=== PATIENT | male | born 1955 | race Caucasian/White ===

== ENCOUNTER → 2020-03-12 11:47 | Outpatient (CLI) | payer OTHER, SELFPAY ==
--- NOTE | 2020-03-12 11:53 | RAD_ITS ---
STUDY: X-RAY - LUMBOSACRAL SPINE REASON FOR EXAM: Male, 64 years old. Chronic low back pain TECHNIQUE: 7 view(s) of the lumbosacral spine were obtained. COMPARISON: None FINDINGS: Normal lumbar lordosis. There is no substantial scoliosis. There is normal alignment of the vertebrae in the lateral view from L1 to L5. There is a bilateral pars defect and grade 2-3 spondylolisthesis at L5/S1. No instability noted on the flexion or extension views.. Normal vertebral bodies and endplates. Normal disc space heights except for significant narrowing at L5/S1. Normal bilateral sacral ala, sacroiliac joints, and visualized sacrum. Normal visualized soft tissue structures. RAD/L/S Spine Comp/w Bending Views IMPRESSION: No demonstrated fracture or suspicious osseous lesion Bilateral pars defect and grade 2-3 spondylolisthesis at L5/S1 without instability Significant disc space narrowing L5/S1 Electronically Signed: Garrick Tanner MD at 13:25 EDT , Service support ,
== END ==
PROVIDERS: PCP Family Medicine; Referring Provider Family Medicine; Visit Provider Family Medicine
DX: M54.5 Low back pain (principal); G89.29 Other chronic pain
CPT/HCPCS: 72114

== ENCOUNTER 2021-07-09 23:17 | Emergency (ER) | payer OTHER, SELFPAY ==
[2021-07-09 23:17] VITALS: PULSE 80; RESP 16; TEMP 36.4; O2SAT 96; BMI 26.4
[2021-07-09 23:22] VITALS: BP 166/78
--- NOTE | 2021-07-09 23:36 | RAD_ITS ---
HISTORY: Laceration between first and second digit on palm from an ice skate. EXAMINATION/TECHNIQUE: XR Hand Min 3 Views: Left COMPARISON: None FINDINGS: SOFT TISSUES: Punctate radiopaque foreign body located between proximal first and second metacarpal bones, visualized on frontal and oblique views but not lateral view. BONES/JOINTS: No acute fracture or subluxation. Normal alignment. Mild first carpometacarpal degenerative joint space narrowing. RAD/Hand Min 3 Views IMPRESSION: Punctate radiopaque foreign body within soft tissues between first and second metacarpal bones, possibly superficial. Correlate clinically. at 0031 Reported and signed by: Kwadwo Boone MD Electronically Signed: Kwadwo Boone MD at 0:30 EDT Tel , Service support ,
[2021-07-10] MEDS: Diphth,Pertuss(Acell),Tet Vac 0.5 ML Vial IM
[2021-07-10] MEDS: Lidocaine 1% /Epi 1:100 (20ml) 20 ML Vial INFILT (00:01)
--- NOTE | 2021-07-10 00:31 | EX.ED.UPPERE ---
HPI History of Present Illness Chief Complaint: Laceration Narrative Narrative: Patient presenting for evaluation secondary to a laceration to the left hand. Patient was playing hockey and a skate went across his palm of his left hand suffering laceration. There is mild to moderate pain worse with palpation and movement. Patient reports that he has numbness over the radial portion of his index finger. Is not up-to-date on his tetanus he is right-hand dominant. He denies any other injuries. PFSH PFSH Medical History Hernia Allergy/AdvReac Type Severity Reaction Status Date / Time cabbage AdvReac Upset Verified 07/09/21 23:20 Stomach Social History Smoking Status: Never smoker ROS ROS ED Constitutional Constitutional ED: Denies fever(s) Respiratory/Chest Respiratory/Chest: Denies cough or dyspnea Integumentary Reports other Details: Left hand laceration Neurologic Neurologic: Reports paresthesias Psychiatric Psychiatric: Denies depression Hematologic/Lymphatic Hematologic/Lymphatic: Denies easy bleeding or easy bruising EXAM Physical Exam Const Vital Signs: 07/09/21 23:17 07/09/21 23:22 Temperature 97.5 F L Temperature Source Oral Pulse Rate 80 Respiratory Rate 16 Blood Pressure 166/78 H Blood Pressure Mean 107 Pulse Ox 96 Oxygen Delivery Method Room Air Positive well nourished and well developed General Appearance ED: well developed HEENT normocephalic and atraumatic Eyes EOMs intact bilaterally Resp normal respiratory effort Cardio regular rate and regular rhythm Extremity Extremity Narrative: Examination of patient's left hand shows a laceration over the palmar surface of the hand. There is a linear laceration measuring about 2 cm over the index and long digit metacarpal area. Patient complains of numbness going from the proximal interphalangeal joint to the tip of the finger over the radial portion of the index finger with normal flexion and extension. Normal capillary refill. Neuro oriented x3 Sensorium / Orientation: alert Psych mental status grossly normal Skin Rashes: no rashes MDM MDM MDM Narrative Medical decision making narrative: Patient presented secondary to a hand laceration. X-ray was obtained by my personal interpretation as well as radiology shows no bony insults, there was a possible metallic foreign body noted on the skin which I was able to remove. It was addressed as noted in the procedure note. Patient be discharged with outpatient follow-up with Dr. Voss as he does have a slight neurologic deficit of the finger. Tetanus was updated Procedures Lacerations Hand: Length: 24 in Depth: Skin Shape: Linear Prep: Shure-Clens Laceration repair: Irrigated and Lidocaine with epi Irrigated (ml): 500 Number of Sutures/Joslyn: 4 Suture Information: Ethilon and 4-0 Comment: Wound was anesthetized using 5 cc of lidocaine with epinephrine. It was explored through full active range of motion there is no evidence of violation of the patient's flexor tendon. Patient was complaining of some numbness over the radial portion of his index finger. It was approximated using simple interrupted 4-0 nylon sutures there was good hemostasis and good approximation of the wound. Discharge Plan Triage Chief Complaint: Laceration ED Provider: Joshua Carlin Dx/Rx/DC Orders Instructions: ED Laceration Hand with ... Primary Care Provider: Kwadwo Jain Referrals: Sonny Voss MD [STAFF PHYSICIAN] - 7 Days for suture removal Kwadwo Jain DO [Primary Care Provider] - Disposition Disposition: Home, Self Care
== END 2021-07-10 01:44 | disposition home or self-care (01) ==
PROVIDERS: Emergency Provider Emergency Medicine; PCP Family Medicine
DX: S61.412A Laceration without foreign body of left hand, initial encounter (principal); W26.8XXA Contact with other sharp object(s), not elsewhere classified, initial encounter; Y93.22 Activity, ice hockey; Y92.9 Unspecified place or not applicable
CPT/HCPCS: 12001; 73130; 90471; 90715; 99284

== ENCOUNTER 2021-07-14 10:40 | Day surgery (SDC) | payer OTHER, SELFPAY ==
[2021-07-14] VITALS (10 sets, daily range): BP systolic 121–140; BP diastolic 72–91; PULSE 48–62; RESP 16; TEMP 35.7–36.3; O2SAT 92–98; BMI 26.1
[2021-07-14] MEDS: Cefazolin 2 GM in 0.9% Normal Saline 100 ML IV (13:46)
--- NOTE | 2021-07-14 13:55 | HP.PCM_ITS ---
History and Physical Date of Admission: 07/14/21 HISTORY OF PRESENT ILLNESS 66 year old man presents with a laceration left hand in distal palmar crease at index finger that he sustained on 07/09/21 while playing hockey. He went to the ED. The wound was cleansed and suture repaired. X-ray was done which showed no acute fracture. A punctate radiopaque foreign body within soft tissues between first and second metacarpal bones, possibly superficial. He complains of numbness along the entire radial aspect left index finger. He presents today for surgical options for treatment. PAST MEDICAL HISTORY Back pain Back problem Bone fracture Difficulty swallowing Hernia Hx of blood diseases Injury of back Injury of digital nerve of left index finger, initial encounter Laceration of left hand with complication Mitral valve prolapse Non-smoker Open wound Syncope Wears glasses PAST SURGICAL HISTORY History of hernia repair ALLERGIES epoxy resin silicone cabbage MEDICATIONS None. FAMILY HISTORY No pertinent family history SOCIAL HISTORY Smoking Status: Never smoker alcohol intake: never substance use type: does not use REVIEW OF SYSTEMS General - Denies fever, fatigue, and weight loss. Eyes - Denies cataracts and glaucoma. ENT - Denies nasal congestion and sore throat. Endocrine - Denies excessive thirst and urination. Skin - Denies suspicious lesions and skin cancer. Has traumatic laceration left hand in distal palmar crease at the index finger. Musculoskeletal - Has joint pain, joint stiffness, and back pain. Denies weakness of muscles and joints and arthritis. Neuro - Denies headaches. Has numbness along radial aspect left index finger. Cardiovascular - Denies chest pain, fatigue, and shortness of breath with exertion. Psych - Denies anxiety and depression. Respiratory - Denies chronic cough and shortness of breath. Gastrointestinal - Denies nausea, vomiting, diarrhea, and constipation. Hematologic - Denies abnormal bruising and bleeding. Genitourinary - Denies hematuria and urinary frequency. PHYSICAL EXAMINATION General - Alert and Oriented HEENT - PERRL. EOMI. Throat is clear. Neck - Supple and nontender. No cervical adenopathy. Lungs - Clear to auscultation. Heart - Regular rate and rhythm. Abdomen - Soft and nondistended. Extremities - FROM right upper extremity and lower extremities. No axillary adenopathy. Radial pulses are palpable. He is right hand dominant. On the left hand in distal palmar crease at the index finger is a horizontal laceration that is suture repaired. Measures 2 cm. There is mild swelling noted in the left palm near the index finger. Fingers are warm with good capillary refill. He has numbness to pinprick on the entire radial aspect left index finger. Neuro - CN II-XII grossly intact. Psych - Normal mood and affect. ASSESSMENT 1. 2 cm horizontal laceration left hand in distal palmar crease at index finger. 2. Paresthesias radial aspect left index finger from injury to radial digital nerve. 3. Injury while ice skating. PLAN X-ray reviewed. No fracture seen. Clinically the patient has a traumatic laceration to the radial digital nerve left index finger which is a branch of the median nerve. Recommend operative intervention to see what is injured. His flexion is intact to the left index finger, so I don't anticipate any issues with the flexor tendons. Any injured structures will be repaired. In order to get exposure, I may need to extend the incision in a zig zag fashion both proximally and distally. With a digital nerve injury, he will be splinted until healed. Will set him up after surgery for an OT evaluation for a silastic splint as well as range of motion exercises, strengthening, and edema management at the appropriate time. Surgery will be done on an outpatient basis under a Brody Block or general anesthesia. Patient was informed of the risks and complications of the procedure including alternatives to surgery. These were discussed with the patient personally. Patient voices understanding and wishes to proceed. Some of the risks and complications were included in a form from the [employer]. Some of the risks and complications that were discussed included but were not inclusive of failure to diagnose including symptom relief, pain, infection, numbness, stiffness, loss of digit, RSD (CRPS), need for further surgery, contracture, and wound healing problems. We discussed the current risks associated with COVID-19. While it is understood that there is a community spread of COVID-19, the risk of mack COVID-19 while at [facility] ([facility]) is very low; however, the risk cannot be completely mitigated because of the community spread of the disease. We discussed in detail the risk of exposure to and/or potential harm posed by the COVID-19 virus with having a surgery/procedure at this time versus the risk of delaying the surgery/procedure. It is not possible to know either the risk of delaying the surgery or procedure or chance of getting an infection with perfect accuracy, but a joint decision was made to proceed at this time with the scheduled surgery/procedure as indicated on the consent form. Patient was notified that we will need to comply with any screening or testing WC wishes to perform or that surgery may be delayed for any positive results. Procedure Criteria Procedure Type: Elective COVID Risk Discussion: The surgeon/proceduralist and patient have discussed in detail the risk of exposure to and/or potential harm posed by the COVID-19 virus with having a surgery/procedure at this time versus the risk of delaying the surgery/procedure. It is not possible to know either the risk of delaying the surgery or procedure or chance of getting an infection with perfect accuracy, but a joint decision was made between the patient and the surgeon/proceduralist to proceed at this time with the scheduled surgery/procedure as indicated on the consent form.
[2021-07-14] MEDS: Mupirocin Ointment 22gm Tube 1 APPLIC (14:30)
[2021-07-14] MEDS: Lidocaine 1% /Epi 1:100 (20ml) 20 ML Vial (15:00)
--- NOTE | 2021-07-14 17:54 | OP.PCM_ITS ---
Problems Associated Problem List Diagnoses (1) Laceration of left hand with complication: (2) Injury of digital nerve of left index finger, initial encounter: (3) Injury while ice skating: Report of Operation Date of Procedure: 07/14/21 Pre-Operative Diagnosis: 1. 2 cm horizontal laceration left hand at distal palmar crease at index finger. 2. Paresthesias radial aspect left index finger, possible injury to radial digital nerve. 3. Injury while ice skating. Post-Operative Diagnosis: 1. 2 cm horizontal laceration left hand at distal palmar crease at index finger. 2. Paresthesias radial aspect left index finger with transection radial digital nerve. 3. Injury while ice skating. Surgery/Procedure Performed:: Exploration horizontal laceration left hand at distal palmar crease at index finger with epineural repair radial digital nerve transection. Description of Surgical Findings:: 66 year old man presents with a laceration left hand in distal palmar crease at index finger that he sustained on 07/09/21 while playing hockey. He went to the ED. The wound was cleansed and suture repaired. X-ray was done which showed no acute fracture. A punctate radiopa que foreign body within soft tissues between first and second metacarpal bones, possibly superficial. He complains of numbness along the entire radial aspect left index finger. Patient was informed of the risks and complications of the procedure including alternatives to surgery. These were discussed with the patient personally. Patient voices understanding and wishes to proceed. Some of the risks and complications were included in a form from the [employer] [place] [employer]. Total tourniquet time - 82 minutes. Surgeon: Sonny Voss senior behavioral scientist: None Type of Anesthesia: Block,Brody Specimen's removed: None. Drains: None. Estimated Blood Loss (mL): 10. Description of Procedure: Patient was taken to OR in supine position and was given IV sedation. A Brody Block was administered with a tourniquet that was inflated to 250 mmHg. The left upper extremity was prepped and draped in the usual fashion. SCD's were placed for DVT prophylaxis. Perioperative antibiotics were given intravenously. The horizontal laceration left hand at distal palmar crease at index finger was infiltrated with xylocaine and epinephrine for postoperative pain relief. After waiting 5 minutes for the a nesthetic to take effect, I extended the incision proximally and distally in a zig zag fashion. Dissection was carried down into the subcutaneous tissue until the small traumatic hematoma was which is indicative of the extent of the sharp injury. I saw the radial digital nerve had been completely transected. The underlying flexor tendons were not injured. The hematoma involved localized injury to the lumbrical muscle, adductor pollicis muscle, and the first dorsal interosseous muscle. I released the tourniquet after 82 minutes. Hemostasis was obtained with gauze compression. No active bleeding was seen in those muscles. I freed up the radial digital nerve in order to have primary repair with minimal tension. The proximal end of the radial digital nerve was seen more ulnarly and became more radial as it traveled more radially toward the tip of the finger. I proceeded under loupe magnification and using microscopic instruments. I sharply debrided the cut ends of the digital nerve to allow better apposition for the repair. I proceeded with an epineural repair of the radial digital nerve using 8-0 Nylon simple interrupted sutures. I used 8 sutures for the epineural repair. The wound was irrigated with saline. I then closed the zig zag incisions with 5-0 Nylon simple interrupted sutures and vertical mattress interrupted sutures. Antibiotic ointment was applied to the suture line followed by Xeroform gauze. This was followed by 2x2 gauze and a Kerlix gauze as a compression dressing. I placed a dorsal splint to keep the index finger from extending which would put increased tension on the epineural repair.The plaster splint was held in place with an jannette compression wrap. Patient tolerated the procedure well and was sent to PACU in satisfactory condition. Patient will be sent home on antibiotics and pain medication. He will keep his left hand elevated during the initial postoperative period. Patient will followup in a week for a wound check. He will go to OT postoperatively for a silastic splint and at the appropriate time, range of motion exercises, strengthening, and edema management. The sutures will be removed in 2 weeks. Grafts/Implants Used: None. Complications None. Admit VTE Documentation VTE Present on Admission: No VTE Mechan Device Prophylaxis: SCD's VTE Pharm Prophylaxis ordered?: No Addendum Addendum: Surgery Charges CPT - 34697 ICD-10 - S61.412A, S64.491A, Y93.21
--- NOTE | 2021-07-14 17:56 | PCM.DC ---
Discharge Instructions Diet Discharge Diet: No restrictions Activity Discharge Activity: May Not Drive (while taking narcotics.) May shower in (days): 1 (wear plastic bag over left hand when showering.) May resume sexual activity in: 10-14 days Weight Bearing Status: Weight bearing as tolerated Lifting Restrictions: no lifting with left hand. Keep extremity elevated above heart level: Left Arm Dressing / Incision Call your doctor if your incision/area has: Continuous Slow Oozing, Sudden Increased Bleeding, Increased Pain/ Swelling, Increased Redness, Foul Smelling Discharge and Swelling at the incision site Call your doctor if you observe: Fever of 101 or Higher, Coldness, Increased Pain, Shortness of breath, Chest pain, Calf discomfort and Uncontrolled pain Remove Dressing in: 1 week (will remove the operative dressing in the office.) Cleanse incision/area with: - (place plastic bag over left hand when showering.) Follow Up Care Please Follow Up With: keshawn When: one week. call [phone] Test Results: Test results from this visit will be discussed in further detail at your follow-up appointment, if applicable. Discharge Plan Admission Primary Reason for Your Visit: digital nerve injury. Attending Provider: Sonny Voss Primary Care Provider: Kwadwo Jain Discharge Orders/Prescriptions Prescriptions: New doxycycline hyclate 100 mg capsule 100 mg PO BID Qty: 10 RF: 0 oxycodone-acetaminophen [Percocet] 5-325 mg tablet 1 tab PO Q4H PRN (Reason: pain (scale score 7-10)) 7 Days Qty: 40 RF: 0 L.acidoph,saliva-B.bif-S.therm [Acidophilus Probiotic Blend] 175 mg capsule 1 cap PO DAILY Qty: 10 RF: 0 No Action NK RF: 0 Referrals / Follow Up: Kwadwo Jain DO [Primary Care Provider] - Disposition Disposition (needs filled in before D/C Order can be placed): Home, Self Care
== END 2021-07-14 18:56 | disposition home or self-care (01) ==
LOC: SDC 10:43 → AC 10:46
PROVIDERS: PCP Family Medicine; Referring Provider Surgery; Visit Provider Surgery
PROC: (CPT 64831; principal; 2021-07-14 13:00)
DX: S61.412A Laceration without foreign body of left hand, initial encounter (principal); S64.491A Injury of digital nerve of left index finger, initial encounter; W26.8XXA Contact with other sharp object(s), not elsewhere classified, initial encounter; Y93.21 Activity, ice skating; Y92.9 Unspecified place or not applicable
CPT/HCPCS: 64831; J7120; A4216; J2405

== ENCOUNTER 2021-08-26 11:30 | Outpatient (RCR) | payer OTHER, SELFPAY ==
--- NOTE | 2021-07-22 17:05 | HP.OTEVAL_ITS ---
Patient's Visit Information MARCELA MANUEL is a 66 year old M, referred to Occupational Therapy by Opal Kimball, FLAQUITA-C, with a diagnosis of left IF digital nerve laceration. Date of Evaluation: 07/22/21 Occupational Therapist: Theresa Bennett, JAK/Octavio, CHT - Subjective This 66 year old male was seen for OT eval with dx of laceration digital nerve left IF- pt states DOI was 07/09/21 sx was on 07/14/21 pt arrives today with need of custom silastic orthosis to provide protection and support while nerve repairs. - Pain left hand 3 Pain Intensity Range: 3 - ROM ROM Comments: will test later date after nerve precautions are lifted - Strength Strength Comments: will test at later date - Goals Goal:100% adherence to protocol: Yes Comment: digital nerve repair Goal:ROM equal to unaffected hand: Yes Goal:Fixed Assets Accountant/Pinch strength at least 75% of unaffected hand: Yes Goal:No pain with affected hand use: Yes Goal:PIP Circumferences equal to unaffected hand: Yes Goal:Full use of affected hand in daily activities including: Yes Goal:Improvement in sensation documented by [place]: Yes Goal:Decrease scar hypersensitivity: Yes - Rehabilitation General Assessment: pt is 1 week from repair of digital nerve and in need of custom orthosis to provide protection and support while nerve repairs- Therapist maritza. custom orthosis and ed, on need- therapist also ed. on precautions of nerve repair- pt demo understanding and agree to PLOC. Rehabilitation Potential: Good - Anticipated Interventions A/AAROM/PROM, Strengthening, Scar Care, Sensory Retraining, Orthoses, Fine Motor Coord/Deepak, Sensory Stimulation, Education re assistive Equipment - Visit Plan Frequency: 1-2x /Week Duration: 6 Weeks General Plan: will initiate protocol when pt is 4 weeks s/p TEXT: Thank you for the opportunity to evaluate your patient. For Medicare and Medicare HMO plans, please review the plan of care and approve it. It will need to be FAXED BACK to us at [phone] for Medicare purposes. Please let me know if there are questions or concerns regarding this plan of care. Physician Signature: Date:
--- NOTE | 2022-01-27 16:04 | HP.OT.NRP ---
MARCELA MANUEL was seen in my office for initial evaluation on 07/22/21. The following Plan of Care was established for this patient: Initial Frequency: 1-2x /Week Initial Duration: 6 Weeks Anticipated Interventions: A/AAROM/PROM, Strengthening, Scar Care, Sensory Retraining, Orthoses, Fine Motor Coord/Deepak, Sensory Stimulation, Education re assistive Equipment This patient was last seen in our office 08/18/21. Pertinent comments regarding their Occupational therapy will appear below: Due to time lapse in services pt is d/c at this time. At this point I will be discontinuing this patient from occupational therapy. I would be happy to see this patient again in the future if found appropriate by the physician. Thank you! Theresa Bennett, OTR/L, CHT
== END 2021-08-26 19:00 | disposition home or self-care (01) ==
LOC: OT 11:30
PROVIDERS: PCP Family Medicine; Referring Provider Nurse Practitioner Family; Visit Provider Nurse Practitioner Family
DX: S61.411D Laceration without foreign body of right hand, subsequent encounter (principal); S64.491D Injury of digital nerve of left index finger, subsequent encounter; Y93.21 Activity, ice skating
CPT/HCPCS: 97166; 97530; 97760

== ENCOUNTER 2022-06-01 17:22 | Emergency (ER) | payer OTHER, SELFPAY ==
[2022-06-01 17:24] VITALS: BP 155/93; PULSE 66; RESP 17; TEMP 35.7; O2SAT 97; BMI 26.4
--- NOTE | 2022-06-01 17:42 | CT_ITS ---
INDICATION: head trauma EXAMINATION: CT BRAIN - CT Head or Brain W/O Contrast Injection TECHNIQUE: Multiple axial images were obtained of the head without intravenous contrast. A radiation dose optimization technique was used for this scan. IV Contrast dosage and agent: None. RADIATION DOSAGE (If Supplied By Facility): CTDIvol = ( 44.99 ) mGy, DLP = ( 829.85 ) mGycm COMPARISON: None FINDINGS: HEMISPHERES: 1. The cerebral parenchyma, ventricular system, subarachnoid spaces have normal configuration and density. There is a normal gyral pattern. There is normal shelton/white differentiation. No midline shift.. 2. There are minimal chronic microvascular deep white matter changes. 3. No intraparenchymal mass, hemorrhage, or acute territorial infarct. CEREBELLUM - BRAINSTEM: The cerebellum, brainstem, basilar and suprasellar cisterns have normal appearance. No Chiari malformation. PITUITARY: Infundibulum and pituitary have normal configuration. Midline structures appear normal. CSF SPACES: Appropriate for age. No hydrocephalus. Basal cisterns are patent. VESSELS: 1. No significant vascular calcifications in the cavernous carotid vessels. 2. No hyperdense vascular signs noted.. ORBITS AND PARANASAL SINUSES: 1. Normal appearance of the bony orbits. Normal appearance of the globes and retrobulbar soft tissues.. 2. Paranasal sinuses are clear. BONY ELEMENTS: Bony elements of the cranial vault, facial skeleton and skull base have normal appearance. SCALP AND SOFT TISSUES: Subtle RIGHT frontal scalp contusion. No radiopaque foreign body. No fracture noted. OTHER: None ASPECTS Score for Acute Strokes: 10 CT/Brain/Head without Contrast IMPRESSION: 1. Minimal chronic microvascular deep white matter changes. 2. No intracranial mass, hemorrhage or acute territorial infarct. 3. RIGHT frontal scalp contusion. No fracture or radiopaque foreign body. 4. No intracranial evidence of acute traumatic injury. 5. No radiographically significant sinus disease.. Electronically Signed: Natan Pagan MD at 18:17 EDT ,
--- NOTE | 2022-06-01 17:42 | CT_ITS ---
INDICATION: trauma EXAMINATION: CT CERVICAL SPINE - CT Spine Cervical W/O Contrast Injection TECHNIQUE: Helically acquired images were obtained of the cervical spine. 2D reformatted images were reviewed. A radiation dose optimization technique was used for this scan. IV Contrast dosage and agent: None. Radiation Dose (provided by facility) CTDIvol (18.22 ) mGy, DLP ( 381.10) mGy-cm COMPARISON: None. FINDINGS: 1. VERTEBRAE: Vertebral body height is maintained. Anterior osteophytes at multiple levels, however mild deformity of the anterior lip of the inferior endplate of C4, C5 and C6. Findings are suspicious of subtle avulsion deformity secondary to hyper extension injuries. No other bony abnormality noted. No malalignment. Facet joints have normal appearance. The odontoid process appears normal. DISCS and SPINAL CANAL: Disc spaces are maintained, minimal disc bulge at C3-4, there is however a LEFT posterior lateral disc bulge/protrusion at the C6-7 level with deformity of the anterior epidural space and LEFT lateral recess. No critical stenosis. NECK SOFT TISSUES: No prevertebral soft tissue swelling. There is no cervical adenopathy. LUNG APICES: Clear. CT/Spine Cervical without Contras IMPRESSION: 1. Minimal anterior osteophyte formation noted in the mid cervical spine, however mild deformity of the anterior lip the inferior endplate of C4, C5, and C6. Findings may be chronic, however subtle avulsion deformities secondary to hyperextension injury is a consideration. 2. No other evidence of fractures malalignment or acutely acquired canal stenosis. 3. There is however a LEFT posterior lateral disc bulge/protrusion with deformity the anterior epidural space and LEFT lateral recess at the C6-7 level. 4. If there is point tenderness, particularly in the mid cervical spine, consider evaluation with MRI to evaluate for soft tissue injury and assess the potential of a subtle avulsion injuries. Electronically Signed: Natan Pagan MD at 18:25 EDT ,
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
--- NOTE | 2022-06-01 17:55 | RAD_ITS ---
INDICATION: pain EXAMINATION/TECHNIQUE: X-RAY - RIGHT XR Shoulder Min 2 Views -2 VIEWS COMPARISON: None. FINDINGS: SOFT TISSUES: No soft tissue swelling or gas. No radiopaque foreign body. BONES/JOINTS: No acute fracture or subluxation.. Normal alignment. Preservation of the joint space.. No sclerotic or destructive changes observed. There is mild displacement of the AC joint which is of uncertain acuity. Additional osteophyte formation from the glenoid rim. Visualized rib cage is intact. RAD/Shoulder min 2 Views IMPRESSION: 1. No evidence of acute fracture or dislocation. 2. Osteophyte formation from the glenoid lip. 3. Significant step off of the AC joint, of uncertain acuity. Electronically Signed: Natan Pagan MD at 18:28 EDT ,
[2022-06-01] MEDS: Ondansetron ODT 4 MG Tablet PO (18:06)
[2022-06-01 19:34] VITALS: PULSE 89; RESP 16; O2SAT 99
== END 2022-06-01 19:58 | disposition home or self-care (01) ==
PROVIDERS: Emergency Provider Student in an Organized Health Care Education/Training Program; PCP Family Medicine; Visit Provider Student in an Organized Health Care Education/Training Program
DX: S43.101A Unspecified dislocation of right acromioclavicular joint, initial encounter (principal); S06.0X0A Concussion without loss of consciousness, initial encounter; M50.30 Other cervical disc degeneration, unspecified cervical region; V84.5XXA Driver of special agricultural vehicle injured in nontraffic accident, initial encounter
CPT/HCPCS: 70450; 72125; 73030; 99283

== ENCOUNTER → 2023-04-24 | Outpatient (CLI) | payer OTHER, MEDICARE, SELFPAY ==
[2023-04-24 17:49] LABS: Pathologist Comment May follow
[2023-04-24 18:56] LABS: CRYSTALS, BODY FLUID See PATH REV; Color / Synovial Fluid Red (Pale Yellow); Source / Synovial Fluid L ELBOW; Source- Body Fluid SYNOVIAL
[2023-04-24 18:57] LABS: Appearance /Synovial Fluid Hazy (CLEAR)
[2023-04-24 19:13] LABS: Body Fluid QC Type(s) BF1Q,BF2Q
[2023-04-24 19:29] LABS: Monocyte /Synovial Fluid 3 %; Neutrophil 97 % (0-25)
[2023-04-26 13:12] LABS: Pathologist Review Reviewed
== END | disposition home or self-care (01) ==
LOC: LABSPEC 16:51
PROVIDERS: PCP Internal Medicine; Referring Provider Physician Assistant; Visit Provider Physician Assistant
DX: M70.22 Olecranon bursitis, left elbow (principal)
CPT/HCPCS: 87015; 87070; 87075; 87077; 87101; 87116; 87186; 87205; 87206; 89051; 89060

== ENCOUNTER → 2025-02-26 | Outpatient (CLI) | payer MEDICARE, SELFPAY ==
--- NOTE | 2025-02-26 07:17 | CT_ITS ---
PROCEDURE: CHEST WITH CONTRAST 02/26/2025 REASON FOR EXAM: LUNG NODULE TECHNIQUE: Prone and supine chest CT with intravenous contrast, high resolution CT (HRCT) protocol. Coronal and Sagittal reconstruction series were provided. CONTRAST: Isovue-350 VOLUME: 100 mL One or more dose reduction techniques were used (e.g., Automated exposure control, adjustment of the mA and/or kV according to patient size, use of iterative reconstruction technique). RADIATION DOSE SUMMARY: CTDlvol: 11.12 mGy DLP: 411 mGycm COMPARISON: None. FINDINGS: 8 mm calcified granuloma of the right lower lobe. Mild bilateral basilar atelectatic pulmonary changes. Small sliding hiatal hernia. Mild diffuse spondylosis. Normal enhancement of the main pulmonary artery and right and left pulmonary arteries. Normal enhancement of the bilateral peripheral pulmonary arteries. There is no demonstrated pulmonary embolism. Normal thoracic aorta and visualized great vessels. There is no demonstrated aortic dissection. Normal heart and pericardium. Normal mediastinum. Normal hilar regions. Normal visualized trachea and bronchi. The remaining lungs are well expanded. Normal remaining pulmonary parenchyma. Normal pleura. Normal remaining visualized upper abdomen. CT/Chest WITH Contrast IMPRESSION: Coronary artery calcification (CAC) is is present 8 mm benign chronic calcified granuloma of the right lower lobe. No follow-up is needed. Mild bilateral basilar atelectatic pulmonary changes. Small sliding hiatal hernia. Mild diffuse spondylosis. Reading Location: [place] [id number]
--- OUTSIDE RECORDS SUMMARY | 2025-02-26 07:19 | XMS RPT_ITS | CCD ---
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 Laceration: All Closures A laceration is a cut through the skin. Deep cuts usually require stitches. Minor cuts may be closed with surgical tape or skin adhesive. X-rays may be done if something may have entered the skin through the cut, such as broken glass. You may also be given a tetanus shot if you are not up to date on this vaccination and the object that cut you may carry tetanus. Home care Your healthcare provider may prescribe an antibiotic. This is to help prevent infection. Follow all instructions for taking this medicine. Take the medicine every day until it is gone or you are told to stop. You should not have any left over. The healthcare provider may prescribe medicines for pain. Follow instructions for taking them. Follow the healthcare provider s instructions on how to care for the cut. Keep the wound clean and dry. Don't get the wound wet until you are told it is OK to do so. If the bandage gets wet, remove it. Gently pat the wound dry with a clean cloth. Then put on a clean, dry bandage. To help prevent infection, wash your hands with soap and water before and after caring for the wound. Caring for stiches: Once you no longer need to keep the stitches dry, clean the wound daily. First, remove the bandage. Then wash the area gently with soap and warm water, or as directed by the healthcare provider. Use a wet cotton swab to loosen and remove any blood or crust that forms. After cleaning, apply a thin layer of antibiotic ointment if advised. Then put on a new bandage unless you are told not to. Caring for skin glue: Don t put apply liquid, ointment, or cream on the wound while the glue is in place. Avoid activities that cause heavy sweating. Protect the wound from sunlight. Don't scratch, rub, or pick at the adhesive film. Don't place tape directly over the film. The glue should peel off within 5 to 10 days. Caring for surgical tape: Keep the area dry. If it gets wet, blot it dry with a clean towel. Surgical tape usually falls off within 7 to 10 days. If it has not fallen off after 10 days, you can take it off yourself. Put mineral oil or petroleum jelly on a cotton ball and gently rub the tape until it is removed. Once you can get the wound wet, you may shower as usual, but don't soak the wound in water. This means no tub baths or swimming. Even with proper treatment, a wound infection may sometimes occur. Check the wound daily for signs of infection listed below. Follow-up care Follow up with your healthcare provider, or as advised. If you have stitches, be sure to return as directed to have them removed. When to seek medical advice Call your healthcare provider right away if any of these occur: Wound bleeding not controlled by direct pressure Signs of infection, including increasing pain in the wound, increasing wound redness or swelling, or pus or bad odor coming from the wound Fever of 100.4 F (38. C) o higher, or as directed by your healthcare provider Stitches come apart or fall out or surgical tape falls off before 7 days Wound edges reopen Wound changes colors Numbness or weakness in the affected hand Decreased movement of the hand [id number] [employer]. [address] [place] [address], [place] [address]. All rights reserved. This information is not intended as a substitute for professional medical care. Always follow your healthcare professional's instructions. Follow Up Care 02/02/2022 09:30:03 With:HIRAM PARKER DO Address: [address] [place] [address] [place] [address]- [phone] When: Unknown With:Return to if symptoms worsen Address:Unknown When:2-4 days [facility] Evaluation + Plan note No data available for this section [facility] Evaluation note No assessment inform ation available [facility] Work Phone: Evaluation note Diagnosis Onset Date Olecranon bursitis of left elbow acute [facility] Work Phone: Evaluation note* Diagnosis Hyperlipidemia, unspecified documented in this encounter [facility] Work Phone: Hospital Discharge instructions No data available for this section [facility] Instructions* Name Dates Details Patient Instructions Indication:BMI 27.0-27.9,adult Start:19-Dec-2022 Instruction Type:Provider Instructions for Treatment How to Access Health Informa tion Online using Patient Portal and [employer] Apps Indication:BMI 27.0-27.9,adult Start:19-Dec-2022 Instruction Type:Patient Edu cation [facility]; [facility] Work Phone: Instructions* Name Dates Details Patient Instructions Indication:BMI 27.0-27.9,adult Start:19-Dec-2022 Instruction Type:Provider Instructions for Treatment How to Access Health Informa tion Online using Patient Portal and [employer] Apps Indication:BMI 27.0-27.9,adult Start:19-Dec-2022 Instruction Type:Patient Edu cation [facility]; [facility] Work Phone: Instructions* Name Dates Details Patient Instructions Indication:BMI 27.0-27.9,adult Start:19-Dec-2022 Instruction Type:Provider Instructions for Treatment How to Access Health Informa tion Online using Patient Portal and [employer] Apps Indication:BMI 27.0-27.9,adult Start:19-Dec-2022 Instruction Type:Patient Edu cation [facility]; [facility] Work Phone: progress note No data available for this section [facility] Reason for visit Narrative* Imaging (Routine) - Pending Review Specialty Diagnoses / Procedures Referred By Vijaya t Referred To Contact Radiology Diagnoses Hyperlipidemia, unspecified Procedures CT cardiac scoring wo IV contrast Suri Garcia DO [address] [facility] [address] [place] [address] Phone: tel: fax: Referral ID Status Reason Start Date Expiration Date Visits Requested Visits Authorized [id number] Pending Review Perform Procedure 4 08/02/2025 1 1 [facility] Work Phone: Chief Complaint and Reason for Visit Chief Complaint RIGHT SHOULDER INJUR Y Chief Complaint CONCERN FOR BURSA ON LFT ARM Olecranon bursitis, left elbow Reason for Visit Olecranon bursitis o f left elbow Advance Directives No Advanced Directives Records Found Advance Directive Response Recorded Date/ Time Living Will No June 01, 2022 5:42pm Power of First Front Ventilator No May 5:42pm Name Dates Details Immunization Registry [place] - Effective on 12/19/2022. Expiration date unspecified Effective:19-Dec-2022 Name Dates Details Immunization Registry [place] - Effective on 12/19/2022. Expiration date unspecified Effective:19-Dec-2022 Name Dates Details Immunization Registry [place] - Effective on 12/19/2022. Expiration date unspecified Effective:19-Dec-2022 Family History No Family History Records FoundUnknown Family Member Name Dates Details Father Comments:. Passed aw ay from Shingles Status:Active Maternal Grandfather Comments:Hypertension. Alcoh olism, Type 2 Diabetes Status:Active Maternal Grandmother Comments:Alcoholism, Type 2 diabetes, High Cholesterol Status:Active Mother Comments:Lung Cancer. Heart and Lung disease, Thyroid, Type 2 Daibetes Status:Active Summary Purpose Additional Source Comments Goals (unrecognized section and content) Goals may be documented in a n alternate section No data available for this sectionGoals may be documented in an alternate section No data available for this sectionGoals may be documented in an alternate section Care Team (unrecognized sect ion and content) Team Status: Active Member Role Status Dates Dr. Suri Garcia DO Primary Care Provider Active Team Status: Inactive Member Role Status Dates Dr. Kwadwo Jain DO Primary Care Provider, Referdaniel cutler Provider Active Néstor GOODMAN PA Attending Provider Active Team Status: Inactive Member Role Status Dates Dr. Suri Garcia DO Primary Care Provider Active MAXINE Marroquin Attending Provider, Referring Vladimir villarreal Active [employer] Relationship Specialty Start Date End Date Suri Garcia DO [address] [place] [address] PCP - MMO Medicare Advantage PCP 11/16/24 (unrecognized sect ion and content) No Status Records FoundNo Status Records FoundNo Status Records FoundNo Status Records Found INFORMATION SOURCE (unrecogn ized section and content) DATE CREATED AUTHOR [facility]22[facility]2022 [facility] DATE CREATED AUTHOR AUTHOR'S ORGANIZ ATION 03/27/2023 [facility] ([place] DATE CREATED AUTHOR AUTHOR'S ORGANIZ ATION 01/24/2025 [facility] DATE CREATED AUTHOR AUTHOR'S ORGANIZ ATION 02/19/2025 [facility] FOR RECORDS PERTAINING TO PATIENTS WHO ARE OR HAVE BEEN ENROLLED IN A CHEMICAL DEPENDENCY/SUBSTANCEABUSE PROGRAM, SOME INFORMATION MAY BE OMITTED. This clinical summary was aggregated from multiple sources. Caution should be exercised in using it in the provision of clinical care. This summary normalizes information from multiple sources, and as a consequence, information in this document may materially change the coding, format and clinical context of patient data. In addition, data may be omitted in some cases. CLINICAL DECISIONS SHOULD BE BASED ON THE PRIMARY CLINICAL RECORDS. [employer] provides no warranty or guarantee of the accuracy or completeness of information in this document.
--- NOTE | 2025-02-26 10:43 | STRESSREP ---
Stress Test Report Date: 02/26/2025 Procedure: Exercise tolerance test/imaging study Indications: Coronary artery disease Consent: Per the patient Procedure: The patient exercised on a Garry protocol for 8 minutes achieving a peak heart rate of 146 bpm (95% predicted maximal heart rate) with a peak blood pressure 158/70 mmHg and a peak MET capacity of 10.1 METs. The baseline ECG demonstrated normal sinus rhythm. The peak exercise ECG showed sinus tachycardia with no ischemic changes. Brief atrial run was noted in recovery. The functional capacity was considered very good for age. There was no complaint of chest discomfort during exercise or recovery. The examination was discontinued secondary to target heart rate being achieved. The patient was injected with 12.9 mCi of technetium 99m Cardiolite and subsequently rest SPECT Cardiolite nuclear imaging was obtained in the horizontal long, vertical long, and short axis views. Post-exercise, the patient was injected with 36.7 mCi of technetium 99m Cardiolite and subsequently stress SPECT Cardiolite nuclear imaging was obtained in the horizontal long, vertical long, and short axis views. A gated Cardiolite study at peak stress was obtained. Rest and stress SPECT Cardiolite nuclear imaging status post realignment, normalization, and attenuation correction, demonstrates the appearance of relative uniform tracer uptake and myocardial perfusion appearing within normal limits. There is end systolic thickening and brightening. The gated Cardiolite study demonstrates myocardial thickening and inward wall motion. The reported LVEF is 67%. Impression: 1. Technically adequate (percent predicted maximal heart rate greater than 85%) exercise tolerance test 2. Peak exercise ECG with no diagnostic ischemic changes 3. Brief atrial run noted in recovery 4. Rest and stress SPECT Cardiolite nuclear imaging demonstrate relative uniform tracer uptake and myocardial perfusion appearing within normal limits. 5. The gated Cardiolite study reports an LVEF of 67%. This note was generated with [employer] software. It may contain incorrect words, spelling, and punctuation that were not noted in checking the note before signing.
== END | disposition home or self-care (01) ==
PROVIDERS: PCP Internal Medicine; Referring Provider Internal Medicine; Visit Provider Internal Medicine
DX: R93.1 Abnormal findings on diagnostic imaging of heart and coronary circulation (principal); R91.1 Solitary pulmonary nodule; M47.9 Spondylosis, unspecified; J98.4 Other disorders of lung; I25.10 Atherosclerotic heart disease of native coronary artery without angina pectoris
CPT/HCPCS: 71260; 78452; 93017; A9500; Q9967; A4216